=== PATIENT | male | born 1950 | race Caucasian/White ===

== ENCOUNTER 2022-09-07 09:48 | Outpatient (CLI) | payer MEDICARE ==
[2022-09-07 11:29] LABS: #Basophils 0.1 10x3/uL (0.0-0.2); #Eosinphils 0.1 10x3/uL (0.0-0.5); #Monocytes 0.8 10x3/uL (0.0-1.1); #Neutrophils 4.1 10x3/uL (1.5-8.4); %Basophils 0.9 % (0.0-2.0); %Eosinophils 1.3 % (0.0-6.0); %Lymphocytes 24.2 % (18.0-47.0); %Monocytes 11.8 % (0.0-10.0); %Neutrophils 60.9 % (40.0-75.0); Hemoglobin 14.7 g/dL (13.5-17.5); Mean Corpuscular HGB CONC 34.8 g/dL (32.0-36.0); Mean Corpuscular Hemoglobin 35.3 pg (27.0-33.0); Mean Corpuscular Volume 101.2 fl (81.2-95.1); Mean Platelet Volume 10.5 fl (7.4-10.4); Platelet Count 239 10x3/uL (150-450); RBC Distribution Width 12.3 % (11.5-14.5); Red Blood Cell (RBC) Count 4.17 10x6/uL (4.32-5.72); White Blood Cell (WBC) Count 6.7 10x3/uL (3.5-10.5)
[2022-09-07 11:43] LABS: Anion Gap 15 mmol/L (10-20); BUN (Urea Nitrogen) 18 mg/dL (8.4-25.7); Calc. Creatinine Clearance 0 mL/min (70-130); Calcium 10.5 mg/dL (7.8-10.44); Carbon Dioxide 29 mmol/L (23-31); Chloride 103 mmol/L (98-107); Estimated GFR 93; Glucose 106 mg/dL (80-115); Potassium 4.9 mmol/L (3.5-5.1); Sodium 142 mmol/L (136-145)
== END 2022-09-07 09:49 | disposition home or self-care (01) ==
LOC: LABBT 09:48
PROVIDERS: ATTEND Surgery
DX: Z01.812 Encounter for preprocedural laboratory examination (principal); K40.90 Unilateral inguinal hernia, without obstruction or gangrene, not specified as recurrent
CPT/HCPCS: 80048; 85025

== ENCOUNTER 2022-09-10 07:40 | Day surgery (SDC) | payer MEDICARE ==
[2022-09-08 14:12] VITALS: BMI 29.6
[2022-09-10] MEDS ORDERED: fentaNYL PF 100 MCG/2 ML SYRINGE ONE (10:23)
[2022-09-10] MEDS ORDERED: PROPOFOL 20 ML ONE (10:23)
[2022-09-10] MEDS ORDERED: Bupivacaine PF 0.5% 30 ML VIAL ONE (10:24)
[2022-09-10] MEDS ORDERED: Bupivacaine/Epinephrine 0.25% 30 ML VIAL ONE (10:24)
[2022-09-10] MEDS ORDERED: Lidocaine 2% PF 5 ML VIAL ONE (10:24)
[2022-09-10] MEDS ORDERED: CEFAZOLIN 2 GM VIAL ONE (10:31)
[2022-09-10] MEDS ORDERED: Sodium Chloride 0.9% 100 ML ONE (10:31)
[2022-09-10] MEDS ORDERED: Dexamethasone 20 MG/5 ML VIAL ONE (10:48)
[2022-09-10] MEDS ORDERED: Ondansetron PF 4 MG/2 ML Vial ONE (10:48)
[2022-09-10] MEDS ORDERED: Lidocaine 1% PF 5 ML VIAL ONE (10:48)
[2022-09-10] MEDS ORDERED: PROPOFOL 200 MG/20 ML VIAL ONE (10:48)
== END 2022-09-10 13:58 | disposition home or self-care (01) ==
LOC: SDC 07:40
PROVIDERS: ATTEND Surgery
PROC: 0YU50JZ Supplement Right Inguinal Region with Synthetic Substitute, Open Approach (ICD-10-PCS; principal; 2022-09-10)
DX: K40.90 Unilateral inguinal hernia, without obstruction or gangrene, not specified as recurrent (principal); M10.9 Gout, unspecified; Z79.899 Other long term (current) drug therapy
CPT/HCPCS: A4306; C1781; J1100; J2001; J2405; J2704; J3490; S0020